=== PATIENT | female | born 1955 | race Caucasian/White ===

== ENCOUNTER → 2016-06-03 | Outpatient (CLI) | payer OTHER | LOC: CIMAGING 11:00 | DX: Z12.31 Encounter for screening mammogram for malignant neoplasm of breast (principal) | CPT/HCPCS: G0202 ==

== ENCOUNTER 2016-06-29 10:09 | Emergency (ER) | payer OTHER ==
[2016-06-29 10:19] VITALS: RESP 16; TEMP 99
--- NOTE | 2016-06-29 10:47 | EDPHY ---
H & P Time Seen by Provider: 06/29/16 10:29 HPI/ROS: This patient reports a one-week history of cough. She explains that it started a week ago with nasal congestion, cough and high fevers. She has associated myalgias and fatigue and was diagnosed by her primary care physician-Dr. Thakkar affiliated with [facility] who diagnosed her with influenza although her flu swab was negative at that time. She was started on Tamiflu but has not improved. She reports that while her fevers seem to have resolved she has increasing frequency of cough productive of green sputum now. She also reports mild shortness of breath. She reports associated ongoing nasal congestion a mild frontal sinus pain. She also reports a moderate sore throat. Her throat pain is 6/10 intensity. She has mild pain with coughing in her chest but no baseline chest pain significant pleuritic pain. ROS: No fevers in the last few days. She has mild fatigue and no other constitutional symptoms HEENT: No ear pain. Pulmonary: No hemoptysis. No respiratory distress. Cardiovascular: She denies presyncopal symptoms or chest pain. No lower extremity swelling. GI: She has anorexia but is still tolerating some p.o. intake. She has mild nausea but no vomiting. : No complaints Integumentary: No complaints Neuro: She reports mild confusion intermittently over the past couple days but does not feel confused at the moment. 10 point ROS is otherwise negative. Past Medical/Surgical History: No previous pulmonary or cardiovascular disease. Smoking Status: Never smoked Physical Exam: Vital signs notable for mild tachycardia 114 and mild hypoxia on room air 92% General Appearance: Alert, no distress. Eyes: Pupils equal and round no pallor or injection. ENT, Mouth: Mucous membranes moist. Respiratory: Rhonchi bilaterally. No rales. No respiratory distress. Cardiovascular: Tachycardic with no murmur gallop rub. No JVD. No peripheral edema. Gastrointestinal: Abdomen is soft and nontender, no masses, bowel sounds normal. Neurological: GCS 15 with no focal deficits Skin: Warm and dry, no rashes. Musculoskeletal: Neck is supple nontender. Extremities are symmetrical, full range of motion. Psychiatric: Mood and affect normal DIFFERENTIAL DIAGNOSIS: After history and physical exam differential diagnosis was considered for bronchitis, viral pharyngitis, mild dehydration, pneumonia, sinusitis Constitutional: Initial Vital Signs Temperature (C) 37.2 C 05/13/17 10:13 Heart Rate 114 H 06/29/16 10:13 Respiratory Rate 16 06/29/16 10:13 Blood Pressure 139/101 H 06/29/16 10:13 O2 Sat (%) 92 06/29/16 10:13 O2 Delivery Mode Room Air Allergies/Adverse Reactions: Penicillins Allergy (Intermediate, Verified 06/29/16 10:17) Rash Sulfa (Sulfonamide Antibiotics) Allergy (Intermediate, Verified 06/29/16 10:17) Rash ENVIRONMENTAL Allergy (Mild, Uncoded 06/29/16 10:17) NASAL CONGESTION Home Medications: Medication Instructions Recorded Albuterol Hfa Anes Only [Proair 2 puffs IH Q4 PRN #1 mdi 06/29/16 Hfa Icu (*)] Azithromycin [Zithromax] 250 mg PO DAILY #4 tab 06/29/16 Lipitor 06/29/16 Zoloft 100mg (*) 06/29/16 MDM/Departure - MDM Diagnostics: Chest x-ray: Bronchitis-question mild retrocardiac atelectasis or infiltrate by my initial interpretation however, radiologist read this as no infiltrate- bronchitis Imaging Results: Imaging Impressions Chest X-Ray 06/29/16 10:42 Impression: Mild bronchitis. No other findings for acute cardiopulmonary abnormality. Medications Given: Discontinued Medications Albuterol/Ipratropium (Duoneb) 3 ml IH EDNOW ONE Stop: 06/29/16 11:28 Last Admin: 06/29/16 11:32 Dose: 3 ml Azithromycin (Zithromax) 500 mg PO EDNOW ONE PRN Reason: Protocol Stop: 06/29/16 11:20 Last Admin: 06/29/16 11:32 Dose: 500 mg Sodium Chloride (Ns) 1,000 mls @ 0 mls/hr IV ONCE ONE PRN Reason: Wide Open Stop: 06/29/16 11:19 Last Admin: 06/29/16 11:30 Dose: Not Given Ibuprofen (Motrin) 600 mg PO EDNOW ONE Stop: 06/29/16 11:28 Last Admin: 06/29/16 11:32 Dose: 600 mg ED Course/Re-evaluation: Course: DuoNeb with increased aeration decreased rhonchi on repeat exam. Zithromax p.o. Ibuprofen p.o. with some improvement in her feeling of facial congestion Discussion: While this patient has mild tachycardia with her presentation I think this is consistent with decreased oral intake due her pharyngitis. While she has mild nausea she is tolerating good p.o. intake. I did discuss the possibility of an IV with IV hydration for this patient but she prefers to proceed with oral hydration and I think this is reasonable in this patient without infiltrate or fever. She has no rales on exam no other concerning findings. No significant throat findings despite her feeling of sore throat. - Depart Disposition: Home, Routine, Self-Care Clinical Impression: Mild dehydration Acute bronchitis Qualifiers: Bronchitis organism: unspecified organism Qualified Code(s): J20.9 - Acute bronchitis, unspecified Pharyngitis Qualifiers: Pharyngitis/tonsillitis etiology: unspecified etiology Qualified Code(s): J02.9 - Acute pharyngitis, unspecified Condition: Good Instructions: Pharyngitis (ED), Acute Bronchitis (ED) Additional Instructions: Diagnoses: 1. Acute bronchitis 2. Pharyngitis 3. Mild dehydration Plan: Humidifier in Drink plenty fluids Albuterol inhaler with spacer for cough, wheeze or shortness of breath Zithromax antibiotic as prescribed-next dose tomorrow Ibuprofen 400-600 mg per 6 hours as needed for pain and Tylenol 650 to 1000 mg per 6 hours as needed for discomfort Return for any significant worsening despite the treatment plan Prescriptions: Albuterol Hfa Anes Only [Proair Hfa Icu (*)] 2 puffs IH Q4 PRN #1 mdi PRN Reason: Wheezing Azithromycin [Zithromax] 250 mg PO DAILY #4 tab Referrals: Roxanne Thakkar MD [Primary Care Provider] - As per Instructions
[2016-06-29] MEDS ORDERED: NS 1,000 ML IV ONE (11:18)
[2016-06-29] MEDS ORDERED: AZITHROMYCIN 250 MG TAB PO ONE (11:19)
[2016-06-29] MEDS ORDERED: IPRATROPIUM/ALBUTEROL 3 ML DEYVIAL IH ONE (11:27)
[2016-06-29] MEDS ORDERED: IBUPROFEN 600 MG TAB PO ONE (11:27)
[2016-06-29 11:49] VITALS: BP 115/79; PULSE 103; O2SAT 97
== END 2016-06-29 11:46 | disposition home or self-care (01) ==
LOC: CED 10:09
DX: J20.9 Acute bronchitis, unspecified (principal); E86.0 Dehydration
CPT/HCPCS: 71020-PO

== ENCOUNTER → 2018-02-19 | Outpatient (CLI) | payer OTHER | LOC: CIMAGING 09:35 | PROVIDERS: ATTEND Family Medicine | DX: Z12.31 Encounter for screening mammogram for malignant neoplasm of breast (principal) ==